=== PATIENT | male | born 1935 | race Caucasian/White ===

== ENCOUNTER → 2021-01-27 | Outpatient (CLI) | payer OTHER, MEDICARE | LOC: SJCVCIMAG 07:22 | PROVIDERS: ATTEND Family Medicine | DX: I08.0 Rheumatic disorders of both mitral and aortic valves (principal); R00.0 Tachycardia, unspecified; R06.00 Dyspnea, unspecified; I25.10 Atherosclerotic heart disease of native coronary artery without angina pectoris ==